=== PATIENT | male | born 1990 | race Caucasian/White ===

== ENCOUNTER 2019-03-03 00:18 | Emergency (ER) | payer OTHER ==
[2019-03-03 00:31] VITALS: RESP 18
[2019-03-03] MEDS ORDERED: PENICILLIN VK 500MG STARTER 4 TAB BTL PO STA (00:59)
--- NOTE | 2019-03-03 01:00 | ED ---
ENT HPI <Melinda Leavitt - Last Filed: 03/03/19 01:01> - General Source: patient Mode of arrival: ambulatory Limitations: no limitations <Maria Del Rosario Braga - Last Filed: 03/03/19 01:07> - General Chief complaint: Dental/Oral Stated complaint: Dental Pain Time Seen by Provider: 03/03/19 00:40 - History of Present Illness Initial comments: Pradip is a 28-year-old gentleman who presents to the emergency department today for evaluation of left upper dental pain. Patient reports that he believes his incoming wisdom tooth is cause pressure in his mouth and caused his tooth that had a cavity to fracture. Patient reports that he's had progressively worsening pain in the broken tooth. He has attempted to call a dentist as well as a surgeon but reports that he's been told by the dentist he needs to be seen by surgeon told by the surgeon he needs be seen by dentist first. Patient reports that he's been taking naproxen for pain but has had progressively worsening pain and is concerned that the gums around the broken tooth her getting red and he has an infection. (Maria Del Rosario Braga) - Related Data Previous Rx's Medication Instructions Recorded Penicillin V Potassium [Pen Vee K] 500 mg PO Q6H #28 tablet 03/03/19 Allergies Allergy/AdvReac Type Severity Reaction Status Date / Time No Known Allergies Allergy Verified 03/03/19 01:03 Review of Systems ROS Other: All systems not noted in ROS Statement are negative. <Melinda Leavitt - Last Filed: 03/03/19 01:01> ROS Other: All systems not noted in ROS Statement are negative. <Maria Del Rosario Braga P - Last Filed: 03/03/19 01:07> ROS Statement: Those systems with pertinent positive or pertinent negative responses have been documented in the HPI. Past Medical History Additional Past Medical History / Comment(s): pneumothorax x2 05/2010 History of Any Multi-Drug Resistant Organisms: None Reported Past Psychological History: No Psychological Hx Reported Smoking Status: Current every day smoker Past Alcohol Use History: None Reported Past Drug Use History: Marijuana <Maria Del Rosario Braga - Last Filed: 03/03/19 01:07> General Exam Limitations: no limitations <Maria Del Rosario Braga - Last Filed: 03/03/19 01:07> - General Exam Comments Initial Comments: Physical Exam GENERAL: Patient is well-developed and well-nourished. Patient is nontoxic and well-hydrated and is in no distress. HENT: Normocephalic, Atraumatic. Poor dentition Tooth #14 is fractured with visible root Gums surrounding teeth 13 through 15 are erythematous EYES: PERRL, EOMI PULMONARY: Unlabored respirations CARDIOVASCULAR: RRR ABDOMEN: Nondistended SKIN: Skin is clear with no lesions or rashes and otherwise unremarkable. : Deferred NEUROLOGIC: Patient is alert and oriented x3. Moving all extremities spontaneously MUSCULOSKELETAL: Normal extremities with adequate strength and full range of motion. No lower extremity swelling or edema. No calf tenderness. PSYCHIATRIC: Normal psychiatric evaluation. (Maria Del Rosario Braga) Course Vital Signs 03/03/19 00:27 Temperature 97.5 F L Pulse Rate 99 Respiratory 18 Rate Blood Pressure 130/90 O2 Sat by Pulse 100 Oximetry Medical Decision Making <Maria Del Rosario Braga - Last Filed: 03/03/19 01:07> - Medical Decision Making The patient was seen and evaluated history was obtained from patient and signed history and physical exam consistent with dental caries with surrounding infe ction no signs of abscess I offered the patient a dental block for pain management however patient states that he has a fear of needles and would prefer to continue treating with [id number] medications including Tylenol and Advil Patient will be started on penicillin and signed patient referred to dental clinic for follow-up (Maria Del Rosario Braga) Disposition <Melinda Leavitt M - Last Filed: 03/03/19 01:01> Is patient prescribed a controlled substance at d/c from ED?: No <Maria Del Rosario Braga - Last Filed: 03/03/19 01:07> Clinical Impression: Fracture of tooth, Dental caries Disposition: HOME SELF-CARE Condition: Stable Instructions (If sedation given, give patient instructions): Dental Abscess (ED) Additional Instructions: Please follow up with the [facility] dental clinic. [facility] [place] [address]. Phone number for new patients or [phone] for existing patients. [facility]. Must pay for x-rays then services are free. Call for an appoitnment. Prescriptions: Penicillin V Potassium [Pen Vee K] 500 mg PO Q6H #28 tablet Referrals: None,Stated [Primary Care Provider] - 1-2 days Walker Miller DDS [STAFF PHYSICIAN] - 1-2 days
[2019-03-03 03:14] VITALS: BP 137/89; PULSE 78; TEMP 98.4
== END 2019-03-03 01:25 | disposition home or self-care (01) ==
LOC: EC 00:18
DX: S02.5XXA Fracture of tooth (traumatic), initial encounter for closed fracture (principal); K02.9 Dental caries, unspecified; F17.200 Nicotine dependence, unspecified, uncomplicated; X58.XXXA Exposure to other specified factors, initial encounter
CPT/HCPCS: 99282

== ENCOUNTER 2019-06-21 19:38 | Emergency (ER) | payer OTHER ==
[2019-06-21] MEDS ORDERED: DIPH,PERTUS(ACELL)TETVAC-LF 0.5 ML VIAL IM ONE (19:59)
[2019-06-21] MEDS ORDERED: LIDOCAINE 1% INJ 10MG/ML (20 ML MDV) SQ ONE (19:59)
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
[2019-06-21 20:03] VITALS: TEMP 98.4
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
[2019-06-21 21:11] VITALS: BP 117/94; PULSE 110; RESP 19
== END 2019-06-21 21:11 | disposition home or self-care (01) ==
LOC: EC 19:38
DX: S01.111A Laceration without foreign body of right eyelid and periocular area, initial encounter (principal); F10.129 Alcohol abuse with intoxication, unspecified; F17.200 Nicotine dependence, unspecified, uncomplicated; Z23 Encounter for immunization; W00.0XXA Fall on same level due to ice and snow, initial encounter; Y93.89 Activity, other specified; Y92.89 Other specified places as the place of occurrence of the external cause
CPT/HCPCS: 72125; 70450; 70480; 90715; 99284; 12013; 90471; J2001

== ENCOUNTER → 2023-12-25 | Outpatient (CLI) | payer OTHER ==
--- NOTE | 2023-12-25 11:34 | XR ---
EXAMINATION TYPE: XR knee complete RT DATE OF EXAM: 12/25/2023 COMPARISON: NONE HISTORY: Pain TECHNIQUE: Three views are submitted. FINDINGS: Joint spaces are preserved. Osseous structures are intact. No acute fracture seen. IMPRESSION: 1. No acute fracture or dislocation.
--- NOTE | 2023-12-25 11:35 | XR ---
EXAM TYPE: LUMBAR SPINE X RAY SERIES COMPARISON: NONE HISTORY: Pain TECHNIQUE: 4 views are submitted. FINDINGS: Alignment is anatomic. The pedicles are intact. The transverse processes are intact. There is no s pondylolysis or spondylolisthesis. Mild degenerative disc disease L5-S1. IMPRESSION: 1. Mild degenerative disc disease L5-S1.
== END | disposition home or self-care (01) ==
LOC: RADXRMAIN 11:07
PROVIDERS: ATTEND Internal Medicine
DX: M25.561 Pain in right knee (principal); R05.3 Chronic cough; M51.37 Other intervertebral disc degeneration, lumbosacral region
CPT/HCPCS: 72100